=== PATIENT | female | born 1945 | race Caucasian/White ===

== ENCOUNTER 2017-10-26 09:33 | Outpatient (CLI) | payer MEDICARE, OTHER ==
[2017-10-26] MEDS ORDERED: Iopamidol 370 76% 100 ML VIAL ONE (10:47)
== END 2017-10-26 09:34 | disposition home or self-care (01) ==
LOC: BICCT 09:33
PROVIDERS: ATTEND Internal Medicine Gastroenterology
DX: R07.89 Other chest pain (principal); K22.70 Barrett's esophagus without dysplasia; R10.9 Unspecified abdominal pain; R14.0 Abdominal distension (gaseous); R19.8 Other specified symptoms and signs involving the digestive system and abdomen; N20.0 Calculus of kidney
CPT/HCPCS: 71260; 74177

== ENCOUNTER 2018-01-06 09:15 | Outpatient (CLI) | payer MEDICARE, OTHER | END 2018-01-06 09:16 | disposition home or self-care (01) | LOC: BICMAMMO 09:15 | PROVIDERS: ATTEND Internal Medicine | DX: C50.419 Malignant neoplasm of upper-outer quadrant of unspecified female breast (principal); Z85.3 Personal history of malignant neoplasm of breast; Z80.3 Family history of malignant neoplasm of breast | CPT/HCPCS: 77066; G0279 ==

== ENCOUNTER 2019-04-03 09:13 | Outpatient (CLI) | payer MEDICARE, OTHER ==
--- NOTE | 2019-04-03 09:50 | MMO ---
Bilateral MAMMO Bilat Diag [facility]. CLINICAL HISTORY: Patient is 73 years old and is seen for diagnostic exam. The patient has no family history of breast cancer. The patient has a history of Lumpectomy procedure revealed invasive ductal right breast carcinoma in July,. The patient has a history of right Excisional Biopsy in August, - benign - Rt breast infection at site of lumpectomy, sx was and right Lumpectomy in July, - malignant, right Excisional Biopsy in June, - invasive ductal carcinoma. VIEWS: The views performed were: bilateral craniocaudal with tomosynthesis; bilateral mediolateral oblique with tomosynthesis; and bilateral mediolateral with tomosynthesis. FILMS COMPARED: The present examination has been compared to prior imaging studies performed at [facility] on 06/13/2014, 04/15/2015, 06/15/2016 and 01/06/2018. This study has been interpreted with the assistance of computer-aided detection. MAMMOGRAM FINDINGS: There are scattered fibroglandular densities. Finding 1: There are stable benign appearing calcifications seen in both breasts. Finding 2: There is a stable post-surgical scar seen in the right breast. There are no suspicious masses, suspicious calcifications, or new areas of architectural distortion. IMPRESSION: THERE IS NO MAMMOGRAPHIC EVIDENCE OF MALIGNANCY. A ROUTINE FOLLOW-UP MAMMOGRAM IN 1 YEAR IS RECOMMENDED. THE RESULTS OF THIS EXAM WERE SENT TO THE PATIENT. ACR BI-RADS Category 2 - Benign finding MAMMOGRAPHY NOTE: 1. A negative mammogram report should not delay a biopsy if a dominant of clinically suspicious mass is present. 2. Approximately 10% to 15% of breast cancers are not detected by mammography. 3. Adenosis and dense breasts may obscure an underlying neoplasm. Reported by: REMI HOLLIS MD Electonically Signed: [id number]
== END 2019-04-03 09:14 | disposition home or self-care (01) ==
LOC: BICMAMMO 09:13
PROVIDERS: ATTEND Internal Medicine
DX: Z08 Encounter for follow-up examination after completed treatment for malignant neoplasm (principal); Z85.3 Personal history of malignant neoplasm of breast
CPT/HCPCS: 77066; G0279

== ENCOUNTER 2020-02-29 06:52 | Day surgery (SDC) | payer MEDICARE, OTHER ==
[2020-02-26 14:27] VITALS: BMI 27.4
[~2020-02-29 06:52] MED LIST: Iothalamate Meglumine 60% 50 ML VIAL FS ONE
[2020-02-29] MEDS ORDERED: Levofloxacin 500 mg/D5W 100 ml Premix Bag ONE (07:31)
[2020-02-29] MEDS ORDERED: Fentanyl 100 MCG/2 ML VIAL ONE ×2 (09:40→11:25)
[2020-02-29] MEDS ORDERED: Lidocaine 1% PF 5 ML VIAL ONE (09:58)
[2020-02-29] MEDS ORDERED: PHENYLEPHRINE-NS 100 MCG/ML 10 ML SYRINGE ONE (09:58)
[2020-02-29] MEDS ORDERED: PROPOFOL 200 MG/20 ML VIAL ONE (09:58)
[2020-02-29] MEDS ORDERED: Ondansetron PF 4 MG/2 ML Vial ONE (09:58)
[2020-02-29] MEDS ORDERED: Dexamethasone 20 MG/5 ML VIAL ONE (09:58)
[2020-02-29] MEDS ORDERED: EPHEDRINE 25 MG/5 ML SYRINGE ONE (09:58)
[2020-02-29] MEDS ORDERED: Ketorolac Tromethamine 30 MG/ML VIAL ONE (11:12)
[2020-02-29] MEDS ORDERED: Phenazopyridine HCl 97.5 MG TABLET ONE ×2 (11:12)
[2020-02-29] MEDS ORDERED: Oxybutynin 5 MG TAB ONE (11:12)
--- NOTE | 2020-02-29 11:59 | RAD ---
RETROGRADE IVP: Date: 02/29/2020 COMPARISON: CT abdomen/pelvis dated 02/21/2020. HISTORY: Bilateral stent placement and stone manipulation. FINDINGS/IMPRESSION: Limited intraoperative fluoroscopic views were submitted for interpretation. There are bilateral uret eral stents seen on the last image. On the early images, there is contrast in the right renal collect ing system with moderate to severe right hydronephrosis. Cholecystectomy clips are seen. POS: EAA
--- NOTE | 2020-02-29 12:21 | OP ---
DATE OF PROCEDURE: 02/29/2020 PREOPERATIVE DIAGNOSES: Left renal stone, right ureteral stricture. POSTOPERATIVE DIAGNOSES: Left renal stone, right ureteral stricture. PROCEDURES PERFORMED: Left ureteroscopy with laser lithotripsy, basket extraction of stone, retrograde pyelogram, 4.8 x 24 double-J ureteral stent placement, right ureteroscopy with retrograde pyelogram and ureteral dilation and placement of a 7 x 24 double-J ureteral stent. ANESTHESIA: General. COMPLICATIONS: None. ESTIMATED BLOOD LOSS: None. SPECIMENS: Left renal stone fragments. DESCRIPTION OF PROCEDURE: After informed consent, the patient was taken to the operating room, transferred to the table on her own power. Anesthesia was established. Time-out was performed showing the correct patient, site, and procedure. Preoperative antibiotics were administered. She was prepped and draped in the lithotomy position. I began by inserting the rigid cystoscope through the urethra into the bladder. The left ureteral orifice was cannulated with a wire, which was passed up to the level of the renal pelvis under fluoroscopic guidance. The stone was easily visible in the upper pole. An access sheath was passed over the wire into the proximal ureter under fluoroscopic guidance. The flexible ureteroscope was negotiated through this into the kidney where the stone was easily identified. This was treated with the 273 micron laser fiber until it was trimmed down to several small pieces. The 1.9-cm Nitinol basket was used to retrieve these pieces, which were passed off the specimen. The kidney was then systematically examined, noting no clinically significant stone fragments remaining. The pelvis was filled with contrast before removing the scope and access sheath, leaving a wire in place. A 4.8 x 24 double-J ureteral stent was passed over the wire with a curl in the kidney and curl in the bladder under fluoroscopic guidance. I then reinserted the cystoscope and passed a Pollack catheter into the right ureteral orifice. A retrograde pyelogram was performed, showing narrow caliber stricture just below the iliacs with severe hydroureter and hydronephrosis proximally. I was able to easily pass a wire through this into the renal pelvis under fluoroscopic guidance. I then performed ureteroscopy, noting no sutures or mucosal defects. I then passed an access sheath through the strictured area to dilate the stricture. I then replaced the ureteroscope and systematically examined the proximal ureter and renal pelvis, noting no mucosal abnormalities. The scope was then carefully withdrawn, noting excellent caliber of the strictured area of the ureter. I then passed a 7 x 24 double-J ureteral stent over the wire with a curl in the kidney and curl in the bladder. The bladder was then drained. The patient awoke from anesthesia, transferred back to her hospital bed, and taken to PACU in stable condition where she will be discharged to home upon recovery. Job ID: [id number]
[2020-03-11 21:07] LABS: CA Oxalate Dihydrate 30 % (.); CA Oxalate Monohydrate 60 % (.); Color Brown (.); Stone Weight 116 mg (.)
== END 2020-02-29 13:35 | disposition home or self-care (01) ==
LOC: SDC 06:52
PROVIDERS: ATTEND Urology
PROC: 0TC18ZZ Extirpation of Matter from Left Kidney, Via Natural or Artificial Opening Endoscopic (ICD-10-PCS; principal; 2020-02-29)
PROC: 0T788DZ Dilation of Bilateral Ureters with Intraluminal Device, Via Natural or Artificial Opening Endoscopic (ICD-10-PCS; 2020-02-29)
DX: N13.2 Hydronephrosis with renal and ureteral calculous obstruction (principal); N13.1 Hydronephrosis with ureteral stricture, not elsewhere classified; N99.81 Other intraoperative complications of genitourinary system; E03.9 Hypothyroidism, unspecified; E78.5 Hyperlipidemia, unspecified; I10 Essential (primary) hypertension; M79.7 Fibromyalgia; D64.9 Anemia, unspecified; Z79.899 Other long term (current) drug therapy; Z88.0 Allergy status to penicillin; Z88.8 Allergy status to other drugs, medicaments and biological substances
CPT/HCPCS: 74420; 82365; 88300; J1100; J1885; J1956; J2405; J2704; J3010

== ENCOUNTER 2020-04-21 13:38 | Outpatient (CLI) | payer MEDICARE, OTHER ==
--- NOTE | 2020-04-21 14:19 | ULT ---
Renal sonogram HISTORY: Flank pain. Renal stone. COMPARISON: CT 02/21/2020. FINDINGS: Right kidney is 9.8 cm length. Calyces are now decompressed. No mass or stone evident. Left kidney is 9.9 cm length. The area of decreased echogenicity measured at the superior pole correl ates with distended calyces seen on recent CT. Echogenic foci at the central aspect of the left kidney correlate with calcifications detailed on prior CT. Urinary bladder has a normal appearance with minimal residual volume. Bilateral ureteral jets are see n. IMPRESSION : Interval resolution of right hydronephrosis. No evidence of obstruction. Left renal calculi. Mild distention of the superior pole calyces is similar to recent CT and may repr esent partial obstruction of the upper pole collecting structures.
== END 2020-04-21 13:39 | disposition home or self-care (01) ==
LOC: SCSULT 13:38
PROVIDERS: ATTEND Urology
DX: N13.2 Hydronephrosis with renal and ureteral calculous obstruction (principal); N28.89 Other specified disorders of kidney and ureter
CPT/HCPCS: 76770

== ENCOUNTER 2020-06-18 08:11 | Outpatient (CLI) | payer MEDICARE, OTHER ==
--- NOTE | 2020-06-18 11:43 | PET ---
Radionucleotide PET scan with CT attenuation correction HISTORY: Malignant neoplasm of upper outer quadrant right breast. History of endometrial cancer. Rest aging. COMPARISON: Remote PET 07/02/2014. Recent CT chest from [facility] 01/23/2020. CT abdomen pelvis 02/21/2020. FINDINGS: Physiologic uptake of radiotracer within the enteric system and along each urinary tract. U ptake at the right antecubital fossa consistent with radiotracer injection. An oval area of increased activity at the dermal/subcutaneous medial aspect of the right breast shows max SUV 9.6 and is in the area of superficial skin thickening on corresponding CT images. Ill-defined area of soft tissue density at the superior medial aspect of the right breast on CT image s is stable and does not show increased activity. A focus of increased activity associated with the anterior costochondral junction of the left seventh rib, max SUV 3.5, is in an area where no CT abnormality is evident. IMPRESSION : Markedly hypermetabolic activity associated with the dermal/subcutaneous lesion at the far anterior a spect of the right breast. No regional adenopathy. The subtle area of activity associated with the left seventh rib anterior costochondral junction is a t a location often associated with trauma. A single metastatic focus is favored to be less likely.
== END 2020-06-18 08:12 | disposition home or self-care (01) ==
LOC: PET 08:11
PROVIDERS: ATTEND Internal Medicine Hematology & Oncology
DX: C54.1 Malignant neoplasm of endometrium (principal); C50.411 Malignant neoplasm of upper-outer quadrant of right female breast
CPT/HCPCS: 78815; A9552

== ENCOUNTER 2020-06-26 10:47 | Outpatient (CLI) | payer MEDICARE, OTHER ==
--- NOTE | 2020-06-26 12:37 | BD ---
EXAM: DEXA bone density examination HISTORY: 75-year-old postmenopausal female for screening COMPARISON: None FINDINGS: L1--bone mineral density 0.866 g/sq cm; T score -1.1 L2--bone mineral density 1.079 g/sq cm; T score 0.5 L3--bone mineral density 1.045 g/sq cm; T score -0.4 L4--bone mineral density 1.130 g/sq cm; T score 0.6 Total L1-L4--bone mineral density 1.044 g/sq cm; T score 0.0 Left femoral neck--bone mineral density0.732; T score -1.1 Total proximal left femur--bone mineral density 0.820; T score -1.0 IMPRESSION: Osteopenia. This patient has a 10 year WHO fracture risk of a major osteoporotic fracture of 11% and of a hip fracture of 1.9%.
== END 2020-06-26 10:48 | disposition home or self-care (01) ==
LOC: BICMAMMO 10:47
PROVIDERS: ATTEND Internal Medicine
DX: Z13.820 Encounter for screening for osteoporosis (principal); M85.89 Other specified disorders of bone density and structure, multiple sites; Z78.0 Asymptomatic menopausal state
CPT/HCPCS: 77080

== ENCOUNTER 2021-07-30 07:32 | Outpatient (CLI) | payer MEDICARE, OTHER | END 2021-07-30 07:33 | disposition home or self-care (01) | LOC: BICCT 07:32 | PROVIDERS: ATTEND Internal Medicine Hematology & Oncology | DX: C50.411 Malignant neoplasm of upper-outer quadrant of right female breast (principal); C54.1 Malignant neoplasm of endometrium; R91.8 Other nonspecific abnormal finding of lung field; I51.7 Cardiomegaly; Z90.11 Acquired absence of right breast and nipple; K57.30 Diverticulosis of large intestine without perforation or abscess without bleeding; N20.0 Calculus of kidney; N13.30 Unspecified hydronephrosis | CPT/HCPCS: 71260; 74177 ==

== ENCOUNTER 2022-02-02 08:33 | Outpatient (CLI) | payer MEDICARE, OTHER ==
[2022-02-02] MEDS ORDERED: Iopamidol-370 76% 500 ML 1 ML ONE (08:44)
== END 2022-02-02 08:34 | disposition home or self-care (01) ==
LOC: BICCT 08:33
PROVIDERS: ATTEND Internal Medicine Hematology & Oncology
DX: C54.1 Malignant neoplasm of endometrium (principal); C50.411 Malignant neoplasm of upper-outer quadrant of right female breast; K57.30 Diverticulosis of large intestine without perforation or abscess without bleeding; N20.0 Calculus of kidney; J98.4 Other disorders of lung; I51.7 Cardiomegaly; K63.89 Other specified diseases of intestine; I89.8 Other specified noninfective disorders of lymphatic vessels and lymph nodes; Z90.11 Acquired absence of right breast and nipple; Z98.890 Other specified postprocedural states
CPT/HCPCS: 71260; 74177; Q9967

== ENCOUNTER 2022-03-16 14:22 | Outpatient (CLI) | payer MEDICARE, OTHER | END 2022-03-16 14:23 | disposition home or self-care (01) | LOC: CT 14:22 | PROVIDERS: ATTEND Internal Medicine Gastroenterology | DX: R93.89 Abnormal findings on diagnostic imaging of other specified body structures (principal); Z53.9 Procedure and treatment not carried out, unspecified reason | CPT/HCPCS: 74280 ==

== ENCOUNTER 2024-01-02 13:50 | Outpatient (CLI) | payer MEDICARE, OTHER | END 2024-01-02 13:51 | disposition home or self-care (01) | LOC: BICMAMMO 13:50 | PROVIDERS: ATTEND Obstetrics & Gynecology | DX: R92.8 Other abnormal and inconclusive findings on diagnostic imaging of breast (principal) | CPT/HCPCS: 77065; G0279 ==

== ENCOUNTER 2024-02-01 10:50 | Outpatient (CLI) | payer MEDICARE, OTHER | END 2024-02-01 10:51 | disposition home or self-care (01) | LOC: BICMAMMO 10:50 | PROVIDERS: ATTEND Internal Medicine | DX: Z13.820 Encounter for screening for osteoporosis (principal); S22.089A Unspecified fracture of T11-T12 vertebra, initial encounter for closed fracture; M85.89 Other specified disorders of bone density and structure, multiple sites | CPT/HCPCS: 77080 ==